=== PATIENT | female | born 1960 | race African-American/Black ===

== ENCOUNTER 2024-11-21 10:15 | Emergency (ER) | payer MEDICAID ==
[~2024-11-21] VITALS: Ht 154.9 cm; Wt 53.5 kg
[2024-11-21 10:22] VITALS: O2SAT 100
[2024-11-21] MEDS: IBUPROFEN 800MG TABLET PO ONE (11:08)
[2024-11-21] MEDS: IBUPROFEN 800MG TABLET PO NR (11:08)
[2024-11-21 11:25] LABS: HEMATOCRIT 37.1 % (36.0-48.0); HEMOGLOBIN 11.7 g/dL (12.0-16.0); MEAN CORPUSCULAR HEMOGLOBIN 26.4 pg (28.0-32.0); MEAN CORPUSCULAR HGB CONC 31.5 g/dL (31.0-37.0); MEAN CORPUSCULAR VOLUME 83.6 fL (81.0-99.0); PLATELET 355 x1000/uL (130-400); RED BLOOD CELL COUNT 4.44 mill/uL (4.2-5.4); RED CELL DISTRIBUTION WIDTH 14.6 % (11.6-14.6); WHITE BLOOD COUNT 5.3 x1000/uL (4.5-11.0)
[2024-11-21 11:38] LABS: CARBON DIOXIDE 30 mEq/L (21-32); CHLORIDE 108 mEq/L (98-107); POTASSIUM 4.5 mEq/L (3.5-5.1); SODIUM 145 mEq/L (136-145)
[2024-11-21 11:39] LABS: CALCIUM 9.8 mg/dL (8.7-10.4)
[2024-11-21 11:44] LABS: CREATININE 0.7 mg/dL (0.6-1.0); GLUCOSE 93 mg/dL (70-105); UREA NITROGEN BLOOD 9 mg/dL (9-23)
[2024-11-21 11:46] LABS: CREATINE KINASE 82 IU/L (34-145)
[2024-11-21] MEDS ORDERED: IBUP-2030 MT (11:53)
[2024-11-21 12:11] VITALS: BP 110/74; PULSE 63; RESP 18; TEMP 36.9; O2SAT 100
== END 2024-11-21 12:12 | disposition home or self-care (01) ==
LOC: ER 10:15
DX: M79.602 Pain in left arm (principal); M79.601 Pain in right arm
CPT/HCPCS: 36415; 80048; 82550; 85027; 99283